=== PATIENT | female | born 1945 | race Asian ===

== ENCOUNTER 2024-04-11 08:30 | Emergency (ER) | payer MEDICARE ==
[~2024-04-11] VITALS: Ht 154.9 cm; Wt 59.1 kg
[2024-04-11 08:33] VITALS: BP 142/55; PULSE 74; RESP 18; TEMP 98; O2SAT 100
[2024-04-11] MEDS ORDERED: METH-659 PO (08:36)
[2024-04-11 09:07] LABS: BASOPHILS % (AUTO) 0.7 % (0.0-2.0); EOSINOPHILS % (AUTO) 1.6 % (1.0-6.0); HEMATOCRIT 39.4 % (36-46); HEMOGLOBIN 12.2 g/dL (12.0-16.0); LYMPHOCYTES # (AUTO) 1.3 K/uL (1.0-4.8); LYMPHOCYTES % (AUTO) 17.4 % (22.0-44.0); MEAN CORPUSCULAR HEMOGLOBIN 21.8 pg (26.0-34.0); MEAN CORPUSCULAR HGB CONC 31.1 G/dL (31.0-37.0); MEAN CORPUSCULAR VOLUME 70 fL (80-100); MONOCYTES # (AUTO) 0.8 K/uL (0.1-1.0); MONOCYTES % (AUTO) 10.2 % (2.0-9.0); NEUTROPHILS # (AUTO) 5.4 K/uL (1.8-7.7); NEUTROPHILS % (AUTO) 70.1 % (40.0-70.0); PLATELET COUNT (AUTO) 221 K/uL (150-450); RED BLOOD CELL COUNT(AUTO) 5.61 MIL/uL (4.00-5.20); RED CELL DISTRIBUTION WIDTH 15.4 % (11.5-14.5); WHITE BLOOD COUNT (AUTO) 7.7 K/uL (4.5-11.0)
[2024-04-11 09:16] LABS: CALCIUM, TOTAL 8.7 mg/dL (8.8-10.5); CREATININE 0.92 mg/dL (0.60-1.30)
[2024-04-11 09:25] LABS: TROPONIN I-HIGH SENSITIVITY Less Than 4 ng/L (<51)
[2024-04-11] MEDS: DIAZEPAM 5 MG TABLET PO ONE (09:57)
[2024-04-11] MEDS: ACETAMINOPHEN 325 MG TABLET PO ONE (09:57)
[2024-04-11] MEDS: LIDOCAINE 5% TRANSDERMAL PATCH TD ONE (09:57)
[2024-04-11] MEDS: IBUPROFEN 400 MG TABLET PO ONE (09:57)
[2024-04-11 11:22] LABS: RBC MORPHOLOGY COMMENT ABNORMAL RBC MORPH
== END 2024-04-11 10:53 | disposition home or self-care (01) ==
LOC: EMS 08:34
DX: R07.89 Other chest pain (principal); M54.9 Dorsalgia, unspecified
CPT/HCPCS: 71045; 80048; 84484; 85025; 93005; 99285; 36415-L1; 36415-TC